=== PATIENT | male | born 1975 | race Caucasian/White ===

== ENCOUNTER 2018-02-11 16:41 | Emergency (ER) | payer MEDICAID ==
[~2018-02-11] VITALS: Ht 182.9 cm; Wt 86.2 kg
[2018-02-11 16:50] VITALS: BP 158/111
== END 2018-02-11 17:01 | disposition home or self-care (01) ==
LOC: ER 16:41
DX: L03.115 Cellulitis of right lower limb (principal); F17.210 Nicotine dependence, cigarettes, uncomplicated